=== PATIENT | female | born 1985 | race Caucasian/White ===

== ENCOUNTER 2021-02-02 08:39 | Outpatient (CLI) | payer BC, SELFPAY ==
--- NOTE | 2021-02-02 11:00 | NEURO_ITS ---
Impression: # Complains of right upper extremity shooting pain from axillary pit. # No Carpal Tunnel Syndrome or ulnar neuropathy. # Normal nerve conduction study. # Normal needle/EMG exam. # Clinical correlation recommended. Nerve Conduction Studies Anti Sensory Summary Table Stim Site NR Peak (ms) P-T Amp (?V) Site1 Site2 Delta-P (ms) Dist (cm) Parveen (m/s) Left Median Anti Sensory (2-3nd Digit) Wrist 2.7 93.6 Wrist 2-3nd Digit 2.7 14.0 52 Wrist 2.5 86.3 Wrist 2-3nd Digit 2.7 14.0 52 Right Median Anti Sensory (2-3nd Digit) Wrist 2.9 41.0 Wrist 2-3nd Digit 2.9 14.0 48 Wrist 2.8 60.6 Wrist 2-3nd Digit 2.9 14.0 48 Left Radial Anti Sensory (Base 1st Digit) Wrist 2.0 33.7 Wrist Base 1st Digit 2.0 0.0 Right Radial Anti Sensory (Base 1st Digit) Wrist 2.2 17.4 Wrist Base 1st Digit 2.2 0.0 Left Ulnar Anti Sensory (5th Digit) Wrist 2.6 88.4 Wrist 5th Digit 2.6 14.0 54 Right Ulnar Anti Sensory (5th Digit) Wrist 2.4 45.7 Wrist 5th Digit 2.4 14.0 58 Motor Summary Table Stim Site NR Onset (ms) O-P Amp (mV) Site1 Site2 Delta-0 (ms) Dist (cm) Parveen (m/s) Left Median Motor (Abd Poll Brev) Wrist 2.8 4.6 Elbow Wrist 5.3 31.0 58 Elbow 8.1 1.5 Right Median Motor (Abd Poll Brev) Wrist 3.0 7.5 Elbow Wrist 4.3 26.0 60 Elbow 7.3 3.9 Left Ulnar Motor (Abd Dig Minimi) Wrist 2.0 7.4 A Elbow Wrist 4.8 29.0 60 A Elbow 6.8 5.9 Right Ulnar Motor (Abd Dig Minimi) Wrist 2.2 9.0 A Elbow Wrist 4.5 28.0 62 A Elbow 6.7 8.2 F Wave Studies NR F-Lat (ms) L-R F-Lat (ms) Left Median (Mrkrs) (Abd Poll Brev) 26.80 0.68 Right Median (Mrkrs) (Abd Poll Brev) 26.12 0.68 Left Ulnar (Mrkrs) (Abd Dig Min) 26.80 0.71 Right Ulnar (Mrkrs) (Abd Dig Min) 26.09 0.71 EMG Side Muscle Nerve Root Ins Act Fibs Amp Dur Recrt Comment Right 1stDorInt Ulnar C8-T1 Nml Nml Nml Nml Nml Right Ext Indicis Radial (Post Int) C7-8 Nml Nml Nml Nml Nml Right Ext Digitorum Radial (Post Int) C7-8 Nml Nml Nml Nml Nml Right BrachioRad Radial C5-6 Nml Nml Nml Nml Nml Right PronatorTeres Median C6-7 Nml Nml Nml Nml Nml Right Abd Poll Brev Median C8-T1 Nml Nml Nml Nml Nml Left 1stDorInt Ulnar C8-T1 Nml Nml Nml Nml Nml Left Ext Indicis Radial (Post Int) C7-8 Nml Nml Nml Nml Nml Left Ext Digitorum Radial (Post Int) C7-8 Nml Nml Nml Nml Nml Left BrachioRad Radial C5-6 Nml Nml Nml Nml Nml Left PronatorTeres Median C6-7 Nml Nml Nml Nml Nml Left Abd Poll Brev Median C8-T1 Nml Nml Nml Nml Nml Left ABD Dig Min Ulnar C8-T1 Nml Nml Nml Nml Nml Right Biceps Musculocut C5-6 Nml Nml Nml Nml Nml Right Triceps Radial C6-7-8 Nml Nml Nml Nml Nml Right Deltoid Axillary C5-6 Nml Nml Nml Nml Nml Right ABD Dig Min Ulnar C8-T1 Nml Nml Nml Nml Nml Left Biceps Musculocut C5-6 Nml Nml Nml Nml Nml Left Triceps Radial C6-7-8 Nml Nml Nml Nml Nml Left Deltoid Axillary C5-6 Nml Nml Nml Nml Nml MTDD
== END 2021-02-02 08:40 | disposition home or self-care (01) ==
PROVIDERS: PCP Family Medicine; Visit Provider Family Medicine
DX: R20.2 Paresthesia of skin (principal); R20.0 Anesthesia of skin
CPT/HCPCS: 95886; 95911

== ENCOUNTER → 2023-04-18 09:44 | Outpatient (CLI) | payer BC, SELFPAY ==
--- NOTE | ~2023-04-18 | MMUS_ITS ---
EXAMINATION: MM diagnostic julito BI w earline, US breast BI limited HISTORY: Breast pain. Family history of breast cancer. History of Celeste syndrome. TECHNIQUE: Additional 3-D tomosynthesis images of the breasts were performed and synthetic 2-D images were generated. CAD analysis was submitted and interpreted. High resolution limited bilateral breast ultrasound was performed. COMPARISON: No prior studies for comparison. BREAST PARENCHYMAL COMPOSITION: Breast composed of scattered areas of fibroglandular density FINDINGS: MAMMOGRAPHIC FINDINGS: There is a circumscribed mass in the upper outer quadrant of the right breast which is slightly lobul ated, posterior depth. There is asymmetry in the upper outer quadrant of the left breast without disc rete mass or architectural distortion. There are no suspicious calcifications in either breast. ULTRASOUND: Limited right breast ultrasound: At 10:00, 8.5 cm from the nipple there is an oval circumscribed para llel oriented hypoechoic mass without posterior features or internal vascularity measuring 2.6 x 1.5 x 1.1 cm. There is an adjacent oval hypoechoic mass measuring 1.4 x 0.7 x 1.2 cm with oval appearance , hypoechoic echotexture, parallel orientation, posterior acoustic shadowing and no internal vascular ity Limited left breast ultrasound: Normal heterogeneous echotexture without focal solid or cystic mass. IMPRESSION: 1. Hypoechoic solid masses of the right breast at 10:00, 8.5 cm from the nipple. 2. Ultrasound-guided right breast biopsies recommended. BI-RADS category 4, suspicious findings. Reviewed, dictated and finalized at location A. ONOLOGY TECHNICIAN IMPRESSION: 1. Hypoechoic solid masses of the right breast at 10:00, 8.5 cm from the nipple . 2. Ultrasound-guided right breast biopsies recommended. BI-RADS category 4, suspicious findings.
== END ==
PROVIDERS: PCP Obstetrics & Gynecology Gynecology; Visit Provider Obstetrics & Gynecology Gynecology
DX: N64.4 Mastodynia (principal); Z80.3 Family history of malignant neoplasm of breast; Z84.81 Family history of carrier of genetic disease; R92.8 Other abnormal and inconclusive findings on diagnostic imaging of breast
CPT/HCPCS: 76642; 77062; 77066; G0279

== ENCOUNTER 2023-08-08 09:23 | Outpatient (CLI) | payer BC, SELFPAY ==
--- NOTE | ~2023-08-08 | US_ITS ---
EXAMINATION: US pelvic complete DATE: 08/08/2023 INDICATION: Excessive and frequent menstruation with regular cycle. TECHNIQUE: Multiple transabdominal sonographic images of the pelvis were obtained. COMPARISON: None. FINDINGS: The uterus measures 9.2 x 4.6 x 5.6 cm. There is physiologic free fluid in the pelvis. The endometria l complex measures 7 mm in thickness. The right ovary measures 2.6 x 1.7 x 1.4 cm. The left ovary riccardo sures 3.4 x 1.9 x 3.1 cm. There is normal vascular flow in the ovaries. IMPRESSION: 1. Normal pelvis. Reviewed, dictated and finalized at location A. IMPRESSION: 1. Normal pelvis.
== END 2023-08-08 09:24 ==
PROVIDERS: Visit Provider Nurse Practitioner
DX: N92.0 Excessive and frequent menstruation with regular cycle (principal)
CPT/HCPCS: 76856